=== PATIENT | male | born 1940 | race Caucasian/White ===

== ENCOUNTER → 2017-03-09 | Outpatient (CLI) | payer MEDICARE, BC | END | disposition home or self-care (01) | LOC: PCVCIMAG 12:50 | PROVIDERS: ATTEND Internal Medicine | DX: I65.23 Occlusion and stenosis of bilateral carotid arteries (principal); E78.5 Hyperlipidemia, unspecified; I48.0 Paroxysmal atrial fibrillation; I35.0 Nonrheumatic aortic (valve) stenosis; I65.29 Occlusion and stenosis of unspecified carotid artery; G47.33 Obstructive sleep apnea (adult) (pediatric); Z79.01 Long term (current) use of anticoagulants | CPT/HCPCS: 80061; 93005; 93306; 93880; G0463 ==

== ENCOUNTER → 2017-10-11 | Outpatient (CLI) | payer MEDICARE, BC | END | disposition home or self-care (01) | LOC: PCVCCLINIC 14:42 | PROVIDERS: ATTEND Internal Medicine | DX: I48.0 Paroxysmal atrial fibrillation (principal); I25.10 Atherosclerotic heart disease of native coronary artery without angina pectoris; I10 Essential (primary) hypertension; I25.84 Coronary atherosclerosis due to calcified coronary lesion; I35.9 Nonrheumatic aortic valve disorder, unspecified; I65.23 Occlusion and stenosis of bilateral carotid arteries; G47.33 Obstructive sleep apnea (adult) (pediatric); Z79.01 Long term (current) use of anticoagulants; Z87.891 Personal history of nicotine dependence; Z79.899 Other long term (current) drug therapy | CPT/HCPCS: 80061; 93005; G0463 ==

== ENCOUNTER → 2018-04-10 | Outpatient (CLI) | payer MEDICARE, BC | END | disposition home or self-care (01) | LOC: PCVCCLINIC 14:17 | DX: I48.0 Paroxysmal atrial fibrillation (principal); I25.10 Atherosclerotic heart disease of native coronary artery without angina pectoris; I25.84 Coronary atherosclerosis due to calcified coronary lesion; I10 Essential (primary) hypertension; I35.9 Nonrheumatic aortic valve disorder, unspecified; I65.23 Occlusion and stenosis of bilateral carotid arteries; E78.5 Hyperlipidemia, unspecified; G47.33 Obstructive sleep apnea (adult) (pediatric); Z79.01 Long term (current) use of anticoagulants; Z87.891 Personal history of nicotine dependence; Z79.899 Other long term (current) drug therapy | CPT/HCPCS: 80061; 93005; G0463 ==

== ENCOUNTER → 2018-04-10 | Outpatient (CLI) | payer MEDICARE, BC | END | disposition home or self-care (01) | LOC: PCVCIMAG 13:05 | DX: I08.8 Other rheumatic multiple valve diseases (principal); I48.0 Paroxysmal atrial fibrillation; I25.10 Atherosclerotic heart disease of native coronary artery without angina pectoris; I10 Essential (primary) hypertension; I25.84 Coronary atherosclerosis due to calcified coronary lesion; I65.23 Occlusion and stenosis of bilateral carotid arteries; E78.5 Hyperlipidemia, unspecified; G47.33 Obstructive sleep apnea (adult) (pediatric); Z79.01 Long term (current) use of anticoagulants; Z79.899 Other long term (current) drug therapy; Z87.891 Personal history of nicotine dependence | CPT/HCPCS: 80061; 93005; 93306; 93880; G0463 ==

== ENCOUNTER → 2019-04-24 | Outpatient (CLI) | payer MEDICARE, BC ==
[~2019-04-24] MED LIST: REGADENOSON 0.4 MG/5 ML DISP.SYRIN. IV ONE
--- NOTE | 2019-04-24 09:40 | PCVCIMAG ---
APPROVED REPORT Study performed: 04/24/2019 08:52:16 EXAM: Comprehensive 2D, Doppler, and color-flow Echocardiogram Patient Location: Echo lab Room #: 2Status: routine BSA: 1.87 HR: 69 bpmBP: 144/70 mmHg Rhythm: NSR Other Information Study Quality: Adequate Risk Factors: Cardiac Risk Factors: HTN, Hyperlipidemia Indications Aortic Valve Disease CAD Hypertension/HDD 2D Dimensions IVSd: 10.54 (7-11mm)LVOT Diam: 23.23 (18-24mm) LVDd: 41.30 mm PWd: 11.29 (7-11mm) LVDs: 29.11 (25-40mm) Left Atrium: 33.32 (27-40mm) Aortic Root: 36.77 mm LV Single Plane 4CH: 53.25 % LV Single Plane 2CH: 58.52 % Biplane EF: 55.3 % Volumes Left Atrial Volume (Systole) Single Plane 4CH: 31.68 mLSingle Plane 2CH: 38.83 mL Biplane LA Volume: 35.00 mLLA ESV Index: 19.00 mL/m2 Aortic Valve AoV Peak Khurram.: 3.07 m/s AO Peak Gr.: 38.81 mmHgLVOT Max P.64 mmHg AO Mean Gr.: 24.74 mmHgLVOT Mean P.12 mmHg AO V2 Mean: 2.39 m/sLVOT Max V: 0.88 m/s AO V2 VTI: 75.52 cmLVOT Mean V: 0.70 m/s JULIUS (VTI): 1.31 [id number] V1 VTI: 23.41 cm JULIUS Vmax: 1.22 cm2 SV (LVOT): 99.20 mL Mitral Valve E/A Ratio: 0.8 MV Decel. Time: 307.64 ms MV E Max Khurram.: 0.81 m/s MV A Khurram.: 0.98 m/s IVRT: 110.73 ms TDI E/Lateral E': 10.13E/Medial E': 13.50 Medial E' Khurram.: 0.06 m/s Lateral E' Khurram.: 0.08 m/s Pulmonary Valve PV Peak Khurram.: 1.20 m/sPV Peak Gr.: 5.78 mmHg Pulmonary Vein P Vein S: 0.44 m/sP Vein A: 0.31 m/s P Vein D: 0.41 m/sP Vein A Dur.: 93.4 msec P Vein S/D Ratio: 1.07 Tricuspid Valve TR Peak Khurram.: 2.42 m/s TR Peak Gr.: 23.48 mmHg TV Vmax: 0.55 m/sPA Pressure: 31.00 mmHg Left Ventricle The left ventricle is normal size. There is normal LV segmental wall motion. Borderline concentric left ventricular hypertrophy. Left ventricular systolic function is normal. The left ventricular ejection fraction is within the normal range. LVEF is >55%. Mild diastolic dysfunction is present (impaired relaxation pattern). Right Ventricle The right ventricle is normal size. The right ventricular systolic function is normal. Atria The left atrium size is normal. The right atrium size is normal. Aortic Valve Aortic valve is trileaflet, moderately calcified Trace aortic regurgitation. Calculated aortic valve area is 1.2 cm2 with maximum pressure gradient of 36 mmHg and mean pressure gradient of 22 mmHg. Mild-moderate stenosis Mitral Valve The mitral valve is normal in structure. There is no mitral valve regurgitation noted. No evidence of mitral valve stenosis. Tricuspid Valve The tricuspid valve is normal in structure. There is no tricuspid valve regurgitation noted. Pulmonic Valve The pulmonary valve is normal in structure. There is no pulmonic valvular regurgitation. Great Vessels The aortic root is normal in size. Ascending aorta is not well visualized. Aortic arch is normal in caliber. IVC is normal in size and collapses >50% with inspiration. Pericardium There is no pericardial effusion. There is no pleural effusion. <Conclusion> Left ventricular systolic function is normal. LVEF is >55%. Mild diastolic dysfunction Aortic valve is trileaflet, moderately calcified; mild-moderate stenosis. No insufficiency Calculated aortic valve area is 1.2 cm2 with maximum pressure gradient of 36 mmHg and mean pressure gradient of 22 mmHg. Mild-moderate stenosis The mitral valve is normal in structure. No mitral valve regurgitation Pulmonary artery pressure of 30mmHg There is no pericardial effusion.
--- NOTE | 2019-04-25 10:04 | PCVCIMAG ---
APPROVED REPORT Imaging Protocol: Rest Tc-99m/Stress Tc-99m 1 day Study performed: 04/24/2019 09:46:30 Indication: CAD, Elevated CA, Dyspnea Patient Location: Out-Patient Stress Nurse: Patria Valderrama RN, Pinky Monreal RN NM Tech:Bogdan [id number] Ht: 5 ft 4 in Wt: 180 lbs BSA: 1.87 m2 HR: 59 bpm BP: 151/67 mmHg BMI: 30.8 Rhythm: Sinus Bradycardia, First Degree AV Block Medical History Medical History: Age, Hyperlipidemia, HTN, CVD, Afib, Elevated CA, CAD, Former Smoker Medications: Cardizem, Cardura, Proscar, Lopid, Losartan, Coumadin Allergies: No known drug allergies Pretest Chest Pain Characteristics: No chest pain Exercise History: Physically active Resting Data Rest SPECT myocardial perfusion imaging was performed in supine position 45 minutes following the intravenous injection of 11.2 mCi of Tc-99m Sestamibi. Time of rest injection: 939 Date: 04/24/2019 Administration Route: IV Administration Site: Right Hand Pharmacologic Stress Pharmacologic stress test was performed by injecting Regadenoson 0.4 mg IV push over 10-15 seconds immediately followed by the intravenous injection of 30.9 mCi of Tc-99m Sestamibi. Time of stress injection: 1124 Date: 04/24/2019 Administration Route: IV Administration Site: Right Hand Gated Stress SPECT was performed 45 minutes after stress injection. The images were gated to evaluate regional wall motion and calculate left ventricular ejection fraction. Stress Test Details Stress Test: Pharmacologic stress testing performed using 0.4 mg of regadenoson per 5 mL given IV over 10 seconds. Reason for pharmacologic stress test: Arthritic Hips. HRMax Heart Rate (APMHR): 140 bpm Resting HR: 59 bpmTarget HR (85% APMHR): 119 bpm Max HR Achieved: 61 bpm % of APMHR: 43 Recovery HR: 71 bpm BP Resting BP: 151/67 mmHg Max BP: 147/68 mmHg Recovery BP: 140/61 mmHg ECG Resting ECG: Sinus Bradycardia, 1st degree AV block Stress ECG: Sinus Rhythm, 1st degree AV block ST Change: None Maximum ST Deviation: 0 mm Arrhythmia: PAC's Recovery ECG: Sinus Rhythm, 1st degree AV block Recovery ST Change: Normal Recovery ST Deviation: 0 mm Recovery Arrhythmia: None Clinical Reason for Termination: Completed protocol Stress Symptoms: Dyspnea, Lightheaded Exercise duration: min 55 sec Symptoms resolved with caffeine. Stress ECG Conclusion ECG: Non-ischemic Clinical: Non-ischemic Study Quality Study: Good Study Data Post stress, the left ventricular ejection was 73%.. SSS: 5 SRS: 6 SDS: 1 TID = 0.97. Perfusion Small sized area of moderate reversible ischemia involving the apex of the left ventricle consistent with a left anterior descending distribution. Otherwise no reversible ischemia present. Wall Motion Normal left ventricular size and function with no regional wall motion abnormalities. Nuclear Conclusion Small sized area of moderate reversible ischemia involving the apex of the left ventricle consistent with a left anterior descending distribution. Otherwise no reversible ischemia present. Post stress, the left ventricular ejection was 73%. No prior study available for comparison. Interpreted by: Doron Pollack MD Electronically Approved: 04/24/2019 20:30:42 <Conclusion> ECG: Non-ischemic Clinical: Non-ischemic
== END | disposition home or self-care (01) ==
LOC: PCVCIMAG 08:40
PROVIDERS: ATTEND Internal Medicine
DX: I25.10 Atherosclerotic heart disease of native coronary artery without angina pectoris (principal); I25.84 Coronary atherosclerosis due to calcified coronary lesion; I10 Essential (primary) hypertension; I48.0 Paroxysmal atrial fibrillation; I35.9 Nonrheumatic aortic valve disorder, unspecified; I65.23 Occlusion and stenosis of bilateral carotid arteries; E78.5 Hyperlipidemia, unspecified; G47.33 Obstructive sleep apnea (adult) (pediatric); R93.1 Abnormal findings on diagnostic imaging of heart and coronary circulation; R06.00 Dyspnea, unspecified; Z79.01 Long term (current) use of anticoagulants
CPT/HCPCS: 78452; 93017; 93306; A9500; G0463; J2785

== ENCOUNTER → 2019-05-02 | Outpatient (CLI) | payer MEDICARE, BC | END | disposition home or self-care (01) | LOC: PCVCCLINIC 10:00 | PROVIDERS: ATTEND Internal Medicine | DX: I10 Essential (primary) hypertension (principal); E78.5 Hyperlipidemia, unspecified | CPT/HCPCS: 36415 ==

== ENCOUNTER → 2019-11-01 | Outpatient (CLI) | payer MEDICARE, BC | END | disposition home or self-care (01) | LOC: PCVCCLINIC 14:47 | PROVIDERS: ATTEND Internal Medicine | DX: I48.0 Paroxysmal atrial fibrillation (principal); I25.10 Atherosclerotic heart disease of native coronary artery without angina pectoris; I25.84 Coronary atherosclerosis due to calcified coronary lesion; I10 Essential (primary) hypertension; I35.9 Nonrheumatic aortic valve disorder, unspecified; I65.23 Occlusion and stenosis of bilateral carotid arteries; E78.5 Hyperlipidemia, unspecified; G47.33 Obstructive sleep apnea (adult) (pediatric); Z79.01 Long term (current) use of anticoagulants; Z79.899 Other long term (current) drug therapy; Z87.891 Personal history of nicotine dependence; Z72.89 Other problems related to lifestyle | CPT/HCPCS: 36415; 80061; 93005; G0463 ==